=== PATIENT | female | born 1970 | race Caucasian/White ===

== ENCOUNTER 2017-06-12 10:40 | Inpatient (IN) | payer BC, OTHER ==
[~2017-06-12] VITALS: Ht 157.5 cm; Wt 76.2 kg
[2017-06-12] MEDS ORDERED: SOD CHLORIDE 0.9% 1,000 ML IV STA (10:58)
[2017-06-12] MEDS ORDERED: ASPIRIN 325 MG TAB PO STA (10:58)
[2017-06-12] MEDS ORDERED: ONDANSETRON 4 MG INJ IV STA (10:58)
[2017-06-12] MEDS ORDERED: METOCLOPRAMIDE 10 MG INJ IV ONE (11:30)
[2017-06-12] MEDS ORDERED: DIPHENHYDRAMINE 50 MG INJ IV ONE (11:30)
[2017-06-12] MEDS ORDERED: ACETAMINOPHEN 325 MG TAB PO ONE (11:30)
--- NOTE | 2017-06-12 11:31 | RADRPT ---
PROCEDURE: XR Chest. CLINICAL INDICATION: Chest pain TECHNIQUE: Single frontal view of the chest was obtained COMPARISON: None FINDINGS: No pleural effusion or pneumothorax. No consolidation. Unremarkable cardiomediastinal silhouette. No acute osseous abnormality. IMPRESSION: No acute cardiopulmonary disease. RPTAT: EE Celine Reid Physician Date Time Electronically viewed and signed by Celine Reid Physician on 06/12/2017 11:30 /
--- NOTE | 2017-06-12 11:32 | ERA ---
ER Documentation Chief Complaint Date/Time DATE: 06/12/17 TIME: 11:22 Chief Complaint SUDDEN ONSET EPIGASTRIC PAIN & DIAPHRETIC X 3OMINS HPI This is a 47-year-old female with a history of previous appendectomy, previous C -section, chronic low back pain with right-sided sciatica who is presenting with epigastric and chest pain. The patient's primary care physician called to discuss the case as well. Reportedly last Monday, the patient had an exacerbation of her sciatic back pain. She was given a shot of Toradol and given a prescription for ibuprofen as well as a Medrol Dosepak. The patient reports significant improvement of her back pain and completed her course of steroids as well as ibuprofen. This morning, she developed significant epigastric pain. She was given Tigan for nausea as well as a GI cocktail, but her symptoms persisted so she was encouraged to go to the emergency department. During transfer, the patient states that her epigastric pain is now radiating into the left chest. It does not radiate anywhere else. She remains nauseated. She has had episodes of nonbilious nonbloody vomiting this morning. She has no shortness of breath. She denies changes to bowel movements or urination. The patient does not have a personal or family history of heart disease, diabetes or stroke. ROS All systems reviewed and are negative except as per history of present illness. Medications Home Meds No Active Prescriptions or Reported Meds Allergies Allergies: Coded Allergies: No Known Allergy (Unverified , 06/12/17) PMhx/Soc History of Surgery: Yes (c section , appy ) Anesthesia Reaction: No Hx Neurological Disorder: No Hx Respiratory Disorders: No Hx Cardiac Disorders: No Hx Miscellaneous Medical Probl: No Hx Alcohol Use: Yes Hx Substance Use: No Hx Tobacco Use: No Smoking Status: Never smoker FmHx Family History: No diabetes Physical Exam Vitals Vital Signs Date Time Temp Pulse Resp B/P Pulse Ox O2 Delivery O2 Flow Rate FiO2 06/12/17 14:31 98.0 46 17 145/82 100 Nasal Cannula 2.0 06/12/17 12:30 43 18 156/89 99 Nasal Cannula 2.0 06/12/17 11:30 42 18 166/82 99 Nasal Cannula 2.0 06/12/17 11:10 Nasal Cannula 2 06/12/17 10:50 97.6 49 20 191/93 100 Physical Exam Const: Nauseated, Mild distress, Well nourished, Well developed Head: Atraumatic Eyes: Normal Conjunctiva ENT: Normal External Ears, Nose and Mouth. Neck: Full range of motion..~ No meningismus. Resp: Clear to auscultation bilaterally Cardio: Regular rhythm, bradycardia, no murmurs Abd: Soft, non distended, epigastric tenderness. Normal bowel sounds Skin: No petechiae or rashes Back: No midline or flank tenderness Ext: No cyanosis, or edema Neur: Awake and alert Psych: Normal Mood and Affect Result Diagram: 06/12/17 1105 06/12/17 1105 Results 24 hrs Laboratory Tests Test 06/12/17 11:05 White Blood Count 14.810^3/ul Red Blood Count 4.8710^6/ul Hemoglobin 11.9g/dl Hematocrit 38.8% Mean Corpuscular Volume 79.7fl Mean Corpuscular Hemoglobin 24.4pg Mean Corpuscular Hemoglobin Concent 30.7g/dl Red Cell Distribution Width 14.5% Platelet Count 92982^3/UL Mean Platelet Volume 10.9fl Neutrophils % 53.5% Lymphocytes % 40.3% Monocytes % 5.0% Eosinophils % 0.1% Basophils % 0.4% Nucleated Red Blood Cells % 0.0/100WBC Neutrophils # (Manual) 7.910^3/ul Lymphocytes # 6.010^3/ul Monocytes # 0.710^3/ul Eosinophils # 0.010^3/ul Basophils # 0.110^3/ul Nucleated Red Blood Cells # 0.010^3/ul Prothrombin Time 13.4Sec Prothrombin Time Ratio 1.0 INR International Normalized Ratio 1.02 Activated Partial Thromboplast Time 25.8Sec Sodium Level 142mmol/L Potassium Level 3.5mmol/L Chloride Level 107mmol/L Carbon Dioxide Level 22mmol/L Anion Gap 17 Blood Urea Nitrogen 24mg/dl Creatinine 0.64mg/dl Glucose Level 133mg/dl Calcium Level 9.9mg/dl Total Bilirubin 0.2mg/dl Direct Bilirubin 0.00mg/dl Indirect Bilirubin 0.2mg/dl Aspartate Amino Transf (AST/SGOT) 22IU/L Alanine Aminotransferase (ALT/SGPT) 35IU/L Alkaline Phosphatase 124IU/L Troponin I < 0.012ng/ml Total Protein 8.1g/dl Albumin 4.7g/dl Globulin 3.40g/dl Albumin/Globulin Ratio 1.38 Lipase 89U/L Current Medications Medications (Trade) Dose Ordered Sig/Vanessa Route PRN Reason Start Time Stop Time Status Last Admin Dose Admin Sodium Chloride (NS) 1,000 ml @ 1,000 mls/hr Q1H STAT IV 06/12/17 10:58 06/12/17 11:57 DC 06/12/17 11:05 Aspirin (Aspirin) 325 mg ONCE STAT PO 06/12/17 10:58 06/12/17 11:01 DC 06/12/17 11:06 Ondansetron HCl (Zofran Inj) 4 mg ONCE STAT IV 06/12/17 10:58 06/12/17 11:01 DC 06/12/17 11:06 Acetaminophen (Tylenol Tab) 650 mg ONCE ONCE PO 06/12/17 11:30 06/12/17 11:31 DC 06/12/17 11:28 Metoclopramide HCl (Reglan) 10 mg ONCE ONCE IV 06/12/17 11:30 06/12/17 11:31 DC 06/12/17 11:27 Diphenhydramine HCl (Benadryl) 25 mg ONCE ONCE IV 06/12/17 11:30 06/12/17 11:31 DC 06/12/17 11:27 Procedures/MDM The patient's presentation warrants a cardiopulmonary workup. The patient's blood work was obtained and reviewed. The patient's CBC shows a mild leukocytosis with a white count of 14.8. There is no left shift. The patient is afebrile at this time, and I have decreased suspicion for a systemic infection. The patient does have a mild anemia that does not need to be emergently treated. She does have a history of anemia. The patient's CMP is largely unremarkable. Her BUN is mildly elevated at 24, which could demonstrate a component of gastritis. The patient does not endorse hematemesis or bloody stools or dark or tarry stools. I do not suspect a GI bleed at this time. The patient's troponin is negative. Her labs do not demonstrate coagulopathy. The patient's chest x-ray demonstrated clear lungs. There is no consolidation or infiltration concerning for pneumonia. There is vasculature to the periphery and I do not suspect a pneumothorax. There is no vascular congestion or signs of pulmonary edema or pleural effusion. The cardiomediastinal silhouette is normal. There is no widened mediastinum. The patient does not have pain radiating to the back, and I do not suspect dissection. EKG read by me: Rate/Rhythm: Regular rhythm, sinus bradycardia at a rate of 44 Intervals: Normal [place]: Normal T-wave inversions in the anterior leads. No ST elevation or ST depression concerning for a STEMI or NSTEMI Impression: No evidence of ischemia or arrhythmia The patient was given IV fluids, a GI cocktail and Pepcid with significant improvement of her epigastric discomfort and nausea. She did endorse a headache and was given Reglan and Benadryl as well. Her headache improved but was not resolved. The patient also continued to be bradycardic. She remained mostly in the low 40s. There were occasional instances when she dropped transiently below 40. When you wake her up and speak to her, she does go into the high 50s. However, I am concerned about symptomatic bradycardia and as this is a new diagnosis, I feel that this requires inpatient workup for her bradycardia as well as the possibility of atypical chest pain as she is a middle -aged female. She will require a cardiology consult. She may also require further workup if her epigastric discomfort recurs. Aside from bradycardia, the patient remained stable. Her symptoms did not recur under my care. Her blood pressure was mildly elevated and stable. I do not feel that the patient is stable for transfer as she does endorse symptoms of symptomatic bradycardia, and she could decompensate during transfer if her heart rate were to drop further. The patient will be admitted to the Panel doctor, as per her Insurance authorization. She was accepted by Dr. Warren at 1505PM on 06/12/2017. Departure Diagnosis: Primary Impression: Epigastric pain Additional Impression: Bradycardia Condition: ANTONY Way MD Jun 12, 2017 11:32
[2017-06-12 11:41] LABS: INR 1.02; PROTIME 13.4 Sec (12.2-14.2)
[2017-06-12 11:46] LABS: ALANINE AMINOTRANSFERASE 35 IU/L (13-69); ALBUMIN 4.7 g/dl (3.3-4.9); ALBUMIN/GLOBULIN RATIO 1.38; ALKALINE PHOSPHATASE 124 IU/L (42-121); ANION GAP 17 (8-16); ASPARTATE AMINO TRANSFERASE 22 IU/L (15-46); BILIRUBIN,INDIRECT 0.2 mg/dl (0-1.1); BILIRUBIN,TOTAL 0.2 mg/dl (0.2-1.3); BLOOD UREA NITROGEN 24 mg/dl (7-20); CALCIUM 9.9 mg/dl (8.4-10.2); CARBON DIOXIDE 22 mmol/L (21-31); CHLORIDE 107 mmol/L (97-110); CREATININE 0.64 mg/dl (0.44-1.00); GLUCOSE 133 mg/dl (70-220); POTASSIUM 3.5 mmol/L (3.5-5.1); SODIUM 142 mmol/L (135-144); TOTAL PROTEIN 8.1 g/dl (6.1-8.1)
[2017-06-12 11:50] LABS: ABNORMAL IP MESSAGE 1; BASOPHIL # 0.1 10^3/ul (0.0-0.1); BASOPHILS % 0.4 % (0.0-2.0); EOSINOPHILS % 0.1 % (0.0-7.0); HEMATOCRIT 38.8 % (37.0-47.0); HEMOGLOBIN 11.9 g/dl (12.0-16.0); LYMPHOCYTES % 40.3 % (15.0-51.0); MEAN CORPUSCULAR HEMOGLOBIN 24.4 pg (29.0-33.0); MEAN CORPUSCULAR HGB CONC 30.7 g/dl (32.0-37.0); MEAN CORPUSCULAR VOLUME 79.7 fl (82.0-101.0); MEAN PLATELET VOLUME 10.9 fl (7.4-10.4); MONOCYTE # 0.7 10^3/ul (0.3-0.9); NEUTROPHILS % 53.5 % (39.0-77.0); PLATELET COUNT 305 10^3/UL (140-415); RED BLOOD COUNT 4.87 10^6/ul (4.20-5.40); RED CELL DISTRIBUTION WIDTH 14.5 % (11.5-14.5); WHITE BLOOD COUNT 14.8 10^3/ul (4.8-10.8)
[2017-06-12 12:04] LABS: TROPONIN-I < 0.012 ng/ml (0.00-0.12)
[2017-06-12 12:12] LABS: POSITIVE DIFF @See below
[2017-06-12 13:03] LABS: PARTIAL THROMBOPLASTIN TIME 25.8 Sec (25.0-35.0)
[2017-06-12] MEDS ORDERED: morphine 4 MG/ML VIAL IV STA (15:10)
[2017-06-12] MEDS ORDERED: ONDANSETRON 4 MG INJ IV PRN (15:30)
[2017-06-12] MEDS ORDERED: ACETAMINOPHEN 325 MG TAB PO PRN (15:30)
[2017-06-12 16:00] VITALS: TEMP 98.1
[2017-06-12] MEDS ORDERED: NITROGLYCERIN (SL) 0.4 MG TAB SL PRN (16:00)
[2017-06-12] MEDS ORDERED: hydrALAzine 20 MG INJ IV PRN (16:00)
[2017-06-12] MEDS ORDERED: ALBUTEROL/IPRATROPIUM (NEB) 3 ML AMP HHN PRN (16:00)
[2017-06-12] MEDS ORDERED: MAGNESIUM HYDROXIDE 30ML CUP PO PRN (16:00)
[2017-06-12] MEDS ORDERED: NA PHOSPHATE/BIPHOS 133 ML ENEMA PR PRN (16:00)
[2017-06-12] MEDS ORDERED: morphine 2 MG INJ IV PRN (16:00)
[2017-06-12] MEDS ORDERED: LORAZEPAM 2 MG INJ IV PRN (16:00)
[2017-06-12] MEDS ORDERED: NACL 0.9% 3 ML SYG IV SCH (16:00)
[2017-06-12] MEDS ORDERED: HYDROCODONE/APAP (5/325) TAB PO PRN (16:00)
[2017-06-12] MEDS ORDERED: DOCUSATE SODIUM 100 MG CAP PO PRN (16:00)
[2017-06-12] MEDS: LEVOFLOXACIN 750MG/D5W (PMX) 150 ML IVPB SCH (17:30)
[2017-06-12 17:40] LABS: INR 1.07; PROTIME 13.9 Sec (12.2-14.2); PT RATIO 1.1
[2017-06-12 17:41] LABS: PARTIAL THROMBOPLASTIN TIME 27.9 Sec (25.0-35.0)
[2017-06-12 17:59] LABS: CREATINE KINASE 51 IU/L (23-200)
[2017-06-12 18:12] LABS: CK-MB 0.99 ng/ml (0.0-2.4)
[2017-06-12 18:13] LABS: TROPONIN-I < 0.012 ng/ml (0.00-0.12)
--- NOTE | 2017-06-12 18:19 | RADRPT ---
Echocardiogram Report Patient Name: LASHANDA CONTRERAS Gender: Female Date: 1970 Study Date: 12-Jun-2017 Movement Education Specialist: Shan Jc [facility] Location: [facility] Ref. Physician: LEE CROWE Quality: Adequate Procedures: Transthoracic echocardiogram with complete 2D, M-Mode, and doppler examination. Indications: Bradycardia. 2D/M Mode Doppler Measurement Value Normal Ranges Measurement Value Normal Ranges LVIDd 2D 4.0 3.5 - 5.6 cm AV Peak Andriy 1.6 m/sec LVIDs 2D 2.6 2.1 - 4.1 cm AV Peak PG 11.0 mmHg FS 2D 36.0 % LVOT Peak Andriy 1.2 m/sec LVPWd 2D 0.8 0.6 - 1.1 cm LVOT Peak PG 6.0 mmHg IVSd 2D 0.8 0.6 - 1.1 cm MV E Peak Andriy 1.3 m/sec IVS/LVPW 2D 1.0 MV A Peak Andriy 0.9 m/sec AoR Diam 2D 2.6 2.0 - 3.7 cm MV E/A 1.4 LA/Ao 2D 1 0 - 1 MV Decel Time 176 msec EDV 2D 64.0 cm3 MV E/A 1.4 ESV 2D 16.8 cm3 MR Peak PG 100.0 mmHg LA Dimen 2D 3.7 2.3 - 4.0 cm MR Peak Andriy 5.0 m/sec TR Peak Andriy 2.7 m/sec TR Peak PG 29.0 mmHg RVSP 39.0 mmHg Findings Left Ventricle: Normal left ventricular systolic function. Normal left ventricular cavity size. Normal left ventricular wall thickness. Ejection fraction is visually estimated at 65 %. Tissue Doppler/Mitral Doppler indices are consistent with impaired relaxation (Stage I diastolic dysfunction). Right Ventricle: Normal right ventricular size. Normal right ventricular systolic function. Left Atrium: The left atrium is normal in size. Right Atrium: The right atrium is normal in size. Mitral Valve: Mild mitral leaflet calcification. Mild mitral annular calcification. Mild mitral valve regurgitation. Aortic Valve: Normal appearance of the aortic valve. No significant aortic stenosis or insufficiency. Tricuspid Valve: Normal appearance of the tricuspid valve. Estimated peak PA systolic pressure 39 mmHg. There is mild tricuspid regurgitation. Pulmonic Valve: Pulmonic valve not well visualized. There is trace pulmonic regurgitation. Pericardium: Normal pericardium with no significant pericardial effusion. Aorta: Normal aortic root. IVC: Dilated inferior vena cava with poor inspiratory collapse consistent with elevated right atrial pressures. Conclusions 1.Normal left ventricular systolic function. Normal left ventricular cavity size. Normal left ventricular wall thickness. Ejection fraction is visually estimated at 65 %. Tissue Doppler/Mitral Doppler indices are consistent with impaired relaxation (Stage I diastolic dysfunction). 2.Normal appearance of the tricuspid valve. Estimated peak PA systolic pressure 39 mmHg. There is mild tricuspid regurgitation. 3.Normal appearance of the aortic valve. No significant aortic stenosis or insufficiency. 4.Mild mitral leaflet calcification. Mild mitral annular calcification. Mild mitral valve regurgitation. 5.Dilated inferior vena cava with poor inspiratory collapse consistent with elevated right atrial pressures. Electronically Signed By: Will Atkins 12-Jun-2017 18:19:08 -0700 Patient Name: LASHANDA CONTRERAS Study Date: 12-Jun-2017 [id number]
--- NOTE | 2017-06-12 18:23 | HP ---
DATE OF ADMISSION: 06/12/2017 CHIEF COMPLAINT: Epigastric pain, nausea, vomiting, and bradycardia. HISTORY OF PRESENT ILLNESS: The patient is a 47-year-old with past medical history of prior appendectomy, prior C section, chronic low back pain and sciatica, who has been having epigastric pain that began earlier this morning. 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 She did well over the weekend until early this morning when she had nonbilious, nonbloody vomiting and nausea, as well as epigastric pain. She decided to come into the ER. She was given Tigan for nausea, as well as a GI cocktail, but her symptoms persisted, so again she came into the ER and when she came in she was found to be in sinus bradycardia, with a heart rate in the 38-44 range. Her white count was also elevated at 14.8. No diarrhea or constipation. No abdominal pain. But she is having positive chest pain and positive shortness of breath symptoms as well. She also found with mild hypertensive urgency as well. Systolic blood pressure is 161 to 170s as well. No prior history of any strokes or heart attacks. No prior history of any arrhythmias. She also stated that she got similar symptoms of epigastric pain, nausea, and vomiting one month ago, but those resolved and she did not seek any medical attention at that time. PAST MEDICAL HISTORY: Stated above. ALLERGIES: NO KNOWN DRUG ALLERGIES. MEDICATIONS: None listed to meds. FAMILY HISTORY: Mother had hypertension and had a thoracic and abdominal aneurysms in and she is . Father had diabetes and pancreatic cancer. He is . SOCIAL HISTORY: Occasional alcohol use, no smoking or IV drug abuse. PAST SURGICAL HISTORY: , appendectomy in the past. PHYSICAL EXAMINATION: VITAL SIGNS: T-max 98.9, pulse is 39 to 46, respirations 18, blood pressure is 145 to 191 systolic over 80 to 90 diastolic. Saturating 99 percent. GENERAL APPEARANCE: The patient is lying in bed, in mild-to- moderate distress. Complaining of chest pain. But otherwise answers questions. HEENT: Pupils are equal, round, react to light. Extraocular muscles intact. NECK: Supple. No thyromegaly. LUNGS: Clear to auscultation bilaterally. CARDIOVASCULAR: S1 and S2 heard, but is bradycardic. No rubs or gallops. ABDOMEN: Soft. Mild tenderness to palpation epigastric area. Otherwise, no rebound or guarding. MUSCULOSKELETAL: No lower extremity edema bilaterally. NEUROLOGIC: No focal deficits. LABORATORY: WBC 14.8, hemoglobin 11.9, hematocrit 38.8, platelets 305,000. The comprehensive metabolic panel is normal. Lipase is normal. Coags are normal. IMAGING: She had a chest x-ray that shows no acute cardiopulmonary disease. ASSESSMENT/PLAN: 1. The patient is a 47-year-old female with epigastric pain and chest pain, and signs of sinus bradycardia. 2. Epigastric pain with chest pain. Again, we will admit patient to telemetry floor. We will rule out for acute coronary syndrome and get cardiology consult. Trend her troponin's. Keep on telemetry floor. Check TSH A1c lipid panel. It is unclear why patient is having sinus bradycardia. She get a Toradol shot 3 or 4 days ago prior to admission. It is known to cause hypertension, but unclear what patient's bradycardia. No history of any arrhythmia in the past. Continue her on telemetry monitoring. 3. Chronic low back pain. We will cautiously give her pain control medications. Including low-dose opiates. 4. Deep venous thrombosis prophylaxis. Heparin subcu. 5. Gastrointestinal prophylaxis. H2 dillon. Consider PT consult as well. 6. Hypertensive urgency. Again, hydralazine as needed. Dictated By: Jeronimo Mata MD /kenneth/johnathon /Document#: [id number]
--- NOTE | 2017-06-12 19:08 | CONS ---
Date/Time of Note Date/Time of Note DATE: 06/12/17 TIME: 19:06 Assessment/Plan Assessment/Plan Chief Complaint/Hosp Course 1. chest pain: R/O ACS 2. Marked sinus bradycardia: probably related to GI pain 3. HTN: probably at least partially related to pain 4. eigastric pain: r/o PUD. S/P ASA in ER Hydralazine po for HTN R/O [place] will give protonix IV now GI work up as per IM will order CT deloris angio to r/o CAD. Thank you for his referral. I will continue to follow along with you. TIFFANIE ADDISON MD [facility] Problems: Consultation Date/Type/Reason Admit Date/Time Date of Consultation: Jun 12, 2017 Type of Consultation: CARDIOLOGY Reason for Consultation CHEST PAIN AND BRADYCARDIA Hx of Present Illness CC: epigastric pain going to chest HPI: Dear Dr. Munoz thank you for this referral. This is a 47-year-old female with history of sciatica who has been having increasing sciatica pain over the past few days. Patient has been started on prednisone as well as ibuprofen. Patient came to the emergency room today with complaint of severe epigastric pain. The pain has been going to his left chest as well. She was also noted to be in marked sinus bradycardia. Rhythm history was reviewed and the EKG was reviewed. Patient with no evidence of heart block. He has been hypotensive as well and has been bradycardic for which I was kindly asked to evaluate and treat. Discussed with the physicians and staff. Discussed with the patient . Allergies: No known drug allergies Past medical history as above only Social history patient does not smoke Family history no reported early coronary artery disease Medications: Ibuprofen and prednisone as above mentioned. Review of systems positive for back pain. She denies all except for above- mentioned. She denies any active bleeding. Social History Smoking Status: Never smoker Exam/Review of Systems Vital Signs Vitals Vital Signs Date Time Temp Pulse Resp B/P Pulse Ox O2 Delivery O2 Flow Rate FiO2 06/12/17 19:01 39 20 167/81 100 Room Air Nasal Cannula 06/12/17 16:00 98.1 2.0 Exam General: no acute distress HEENT: NC/AT. pupils are equal. round. NECK: NO JVD. no stridor. CV: BRADYCARDIC. systolic murmur; no gallop or rubs. PULM: no wheezing or rhonchi. GI: SOFT, + mild tenderness epigastric area, ND, no rebound or guarding Extremity: trace B/L LE edema. no clubbing. neuro: awake and alert, OX3. Psych: calm and pleasant rectal: deferred : normal ECG: personally reviewed marked sinus brdy. nonspecific T wave abn ECHO personally reviewed; 1. Normal left ventricular systolic function. Normal left ventricular cavity size. Normal left ventricular wall thickness. Ejection fraction is visually estimated at 65 %. Tissue Doppler/Mitral Doppler indices are consistent with impaired relaxation (Stage I diastolic dysfunction). 2. Normal appearance of the tricuspid valve. Estimated peak PA systolic pressure 39 mmHg. There is mild tricuspid regurgitation. 3. Normal appearance of the aortic valve. No significant aortic stenosis or insufficiency. 4. Mild mitral leaflet calcification. Mild mitral annular calcification. Mild mitral valve regurgitation. 5. Dilated inferior vena cava with poor inspiratory collapse consistent with elevated right atrial pressures. Results Result Diagram: 06/12/17 1105 06/12/17 1105 Results 24 hrs Laboratory Tests Test 06/12/17 11:05 06/12/17 16:50 White Blood Count 14.8 H Red Blood Count 4.87 Hemoglobin 11.9 L Hematocrit 38.8 Mean Corpuscular Volume 79.7 L Mean Corpuscular Hemoglobin 24.4 L Mean Corpuscular Hemoglobin Concent 30.7 L Red Cell Distribution Width 14.5 Platelet Count 305 Mean Platelet Volume 10.9 H Neutrophils % 53.5 Lymphocytes % 40.3 Monocytes % 5.0 Eosinophils % 0.1 Basophils % 0.4 Nucleated Red Blood Cells % 0.0 Neutrophils # (Manual) 7.9 H Lymphocytes # 6.0 H Monocytes # 0.7 Eosinophils # 0.0 Basophils # 0.1 Nucleated Red Blood Cells # 0.0 Prothrombin Time 13.4 13.9 Prothrombin Time Ratio 1.0 1.1 INR International Normalized Ratio 1.02 1.07 Activated Partial Thromboplast Time 25.8 27.9 Sodium Level 142 Potassium Level 3.5 Chloride Level 107 Carbon Dioxide Level 22 Anion Gap 17 H Blood Urea Nitrogen 24 H Creatinine 0.64 Glucose Level 133 Calcium Level 9.9 Total Bilirubin 0.2 Direct Bilirubin 0.00 Indirect Bilirubin 0.2 Aspartate Amino Transf (AST/SGOT) 22 Alanine Aminotransferase (ALT/SGPT) 35 Alkaline Phosphatase 124 H Troponin I < 0.012 < 0.012 Total Protein 8.1 Albumin 4.7 Globulin 3.40 H Albumin/Globulin Ratio 1.38 Lipase 89 Creatine Kinase 51 Creatine Kinase Index 1.9 Creatinine Kinase MB (Mass) 0.99 Medications Medications Current Medications Ondansetron HCl (Zofran Inj) 4 mg Q6H PRN IV NAUSEA AND/OR VOMITING; Start 08/18 at 16:00 Acetaminophen (Tylenol Tab) 650 mg Q6H PRN PO PAIN LEVEL 1-3 OR FEVER; Start at 16:00 Acetaminophen/ Hydrocodone Bitart ([place] (5/325)) 1 tab Q6H PRN PO MODERATE PAIN LEVEL 4-6 Last administered on 06/12/17 17:30; Admin Dose 1 TAB; Start 08/18 at 16:00 Morphine Sulfate (morphine) 1 mg Q6H PRN IV SEVERE PAIN LEVEL 7-10; Start 06/12 at 16:00 Docusate Sodium (Colace) 100 mg Q12H PRN PO CONSTIPATION; Start 06/12/17 at 16: 00 Magnesium Hydroxide (Milk Of Mag) 30 ml DAILY PRN PO CONSTIPATION; Start at 16:00 Sodium Biphosphate/ Sodium Phosphate (Fleet Enema) 133 ml DAILY PRN RI CONSTIPATION; Start 06/12/17 at 16:00 Famotidine (Pepcid Iv) 20 mg Q12 IV ; Start 06/12/17 at 21:00 Heparin Sodium (Porcine) 5000 unit 5,000 unit Q12 SC ; Start 06/12/17 at 21:00 Sodium Chloride (1/2 NS) 1,000 ml @ 75 mls/hr [id number] IV ; Start 06/12/17 at 15 :38 Lorazepam 0.5 mg 0.5 mg Q6H PRN IV ANXIETY; Start 06/12/17 at 16:00 Levofloxacin/ Dextrose (Levaquin 750 Mg/ D5W 150 ml (Pmx)) 150 ml @ 100 mls/hr Q24H IVPB Last administered on 06/12/17 17:30; Admin Dose 100 MLS/HR; Start at 16:30 Hydralazine HCl (Apresoline) 10 mg Q6H PRN IV ELEVATED BLOOD PRESSURE; Start at 16:00 Clonidine (Catapres) 0.1 mg Q6H PRN PO ELEVATED BLOOD PRESSURE; Start 06/12/17 at 16:00 Nitroglycerin (Nitroglycerin (Sl Tab) 0.4 Mg) 1 tab Q5M PRN SL ANGINA; Start at 16:00 TIFFANIE ADDISON MD Jun 12, 2017 19:07
[2017-06-12] MEDS ORDERED: PANTOPRAZOLE 40 MG INJ IV ONE (19:30)
[2017-06-12 19:57] VITALS: PULSE 30
[2017-06-12 20:00] VITALS: PULSE 40
[2017-06-12] MEDS: SOD CHLORIDE 0.45% 1,000 ML IV SCH (20:21)
[2017-06-12] MEDS: HEPARIN 5,000 UNIT/0.5 ML VIAL SC SCH (20:33)
[2017-06-12] MEDS: ACETAMINOPHEN 325 MG TAB PO PRN (20:35)
[2017-06-12 20:56] VITALS: BP 173/82; RESP 19
[2017-06-12] MEDS: FAMOTIDINE 20 MG INJ IV SCH (21:50)
[2017-06-12] MEDS: KETOROLAC 30 MG INJ IV PRN (22:16)
[2017-06-12 22:27] VITALS: Ht 157.5 cm; Wt 76.2 kg
[2017-06-12 23:42] LABS: CREATINE KINASE 43 IU/L (23-200)
[2017-06-12 23:52] LABS: CK-MB 0.83 ng/ml (0.0-2.4)
[2017-06-12 23:58] LABS: TROPONIN-I < 0.012 ng/ml (0.00-0.12)
[2017-06-13] VITALS (13 sets, daily range): BP systolic 111–150; BP diastolic 54–66; PULSE 40–51; RESP 18–20
[2017-06-13 04:04] LABS: ADD UMIC NO; UR ASCORBIC ACID NEGATIVE (NEGATIVE); UR BILIRUBIN (Dip) NEGATIVE (NEGATIVE); UR BLOOD (Dip) NEGATIVE (NEGATIVE); UR CLARITY CLEAR (CLEAR); UR COLOR YELLOW (YELLOW); UR GLUCOSE (Dip) NEGATIVE (NEGATIVE); UR KETONES (Dip) 1+ mg/dL (NEGATIVE); UR LEUKOCYTE ESTERASE (Dip) NEGATIVE Leu/ul (NEGATIVE); UR NITRITE (Dip) NEGATIVE (NEGATIVE); UR SPECIFIC GRAVITY (Dip) 1.017 (1.003-1.030); UR TOTAL PROTEIN (Dip) NEGATIVE (NEGATIVE); UR UROBILINOGEN (Dip) NEGATIVE (NEGATIVE)
[2017-06-13] MEDS: SOD CHLORIDE 0.45% 1,000 ML IV SCH ×3 (04:58→18:01)
[2017-06-13 07:45] LABS: BASOPHILS % 0.3 % (0.0-2.0); EOSINOPHILS % 0.1 % (0.0-7.0); HEMATOCRIT 33.3 % (37.0-47.0); HEMOGLOBIN 10.1 g/dl (12.0-16.0); LYMPHOCYTES # 3.1 10^3/ul (0.8-2.9); LYMPHOCYTES % 32.7 % (15.0-51.0); MEAN CORPUSCULAR HEMOGLOBIN 24.8 pg (29.0-33.0); MEAN CORPUSCULAR HGB CONC 30.3 g/dl (32.0-37.0); MEAN CORPUSCULAR VOLUME 81.8 fl (82.0-101.0); MONOCYTE # 0.8 10^3/ul (0.3-0.9); MONOCYTES % 7.9 % (0.0-11.0); NEUTROPHILS % 58.7 % (39.0-77.0); PLATELET COUNT 191 10^3/UL (140-415); RED BLOOD COUNT 4.07 10^6/ul (4.20-5.40); RED CELL DISTRIBUTION WIDTH 14.6 % (11.5-14.5); WHITE BLOOD COUNT 9.6 10^3/ul (4.8-10.8)
[2017-06-13 08:05] LABS: ALBUMIN 3.3 g/dl (3.3-4.9); ALBUMIN/GLOBULIN RATIO 1.22; BILIRUBIN,INDIRECT 0.5 mg/dl (0-1.1); BILIRUBIN,TOTAL 0.5 mg/dl (0.2-1.3); CREATININE 0.67 mg/dl (0.44-1.00); POTASSIUM 4.1 mmol/L (3.5-5.1)
[2017-06-13] MEDS: FAMOTIDINE 20 MG INJ IV SCH ×2 (08:08→20:13)
[2017-06-13] MEDS: HEPARIN 5,000 UNIT/0.5 ML VIAL SC SCH ×2 (08:12→20:20)
[2017-06-13 08:15] LABS: CHOL/HDL RATIO 3.4 RATIO
[2017-06-13 08:20] LABS: CALCIUM 8.9 mg/dl (8.4-10.2); CREATININE 0.66 mg/dl (0.44-1.00); MAGNESIUM 1.9 mg/dl (1.7-2.5); PHOSPHORUS 4.5 mg/dl (2.5-4.9); POTASSIUM 4.2 mmol/L (3.5-5.1)
[2017-06-13 08:44] LABS: THYROID STIMULATING HORMONE 1.71 MIU/L (0.465-4.680)
[2017-06-13] MEDS: ACETAMINOPHEN 325 MG TAB PO PRN ×2 (09:46→20:13)
--- NOTE | 2017-06-13 12:36 | PN ---
Date/Time of Note Date/Time of Note DATE: 06/13/17 TIME: 12:33 Assessment/Plan VTE Prophylaxis VTE Prophylaxis Intervention: heparin Lines/Catheters IV Catheter Type (from Nrsg): Saline Lock Assessment/Plan Assessment/Plan 1. chest pain, likely GI related, awaiting for coronary CTA, 2. Marked sinus bradycardia, normal TSH, follow up with cardiology 3. HTN: probably at least partially related to pain 4. Epigastric pain, gastritis versus PUD, on protonix, improving 5. DVT prophylaxis: heparin Subjective 24 Hr Interval Summary Free Text/Dictation no chest pain today Exam/Review of Systems Vital Signs Vitals Vital Signs Date Time Temp Pulse Resp B/P Pulse Ox O2 Delivery O2 Flow Rate FiO2 06/13/17 12:12 98.8 45 18 122/58 98 06/13/17 07:22 Nasal Cannula 2.0 Intake and Output 06/12/17 06/12/17 06/13/17 15:00 23:00 07:00 Intake Total 700 ml Balance 700 ml Exam Constitutional: alert, obese, oriented, well developed Psych: nl mood/affect, no complaints Head: atraumatic, normocephalic Eyes: EOMI, PERRL, nl conjunctiva, nl lids, nl sclera ENMT: nl external ears & nose, nl lips & teeth, nl nasal mucosa & septum Neck: non-tender, supple Respiratory: clear to auscultation, normal air movement, No congested cough, No crackles/rales, No diminished breath sounds, No intercostal retraction, No labored breathing, No other, No respirations, No tactile fremitus, No wheezing Cardiovascular: nl pulses, regular rate and rhythm, No S3, No S4, No bruits, No diastolic murmur, No edema, No gallop, No irregular rhythm, No jugular venous distention (JVD), No murmurs/extra sounds, No other, No rub, No systolic murmur Gastrointestinal: nl liver, spleen, soft, tender (epigastric tenderness), No ascites, No bowel sounds, No distended, No firm, No hepatomegaly, No mass , No other, No rebound or guarding, No splenomegaly, No surgical scars Musculoskeletal: nl extremities to inspection Extremities: normal pulses, No calf tenderness, No clubbing, No cyanosis, No edema, No other, No palpable cord, No pitting pedal edema, No tenderness 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, nl mental status, nl speech, nl strength Skin: nl turgor Lymph: nl lymph nodes Results Result Diagram: 06/13/17 0644 06/13/17 0644 Results 24 hrs Laboratory Tests Test 06/12/17 16:50 06/12/17 23:16 06/13/17 01:35 06/13/17 06:44 Prothrombin Time 13.9 Prothrombin Time Ratio 1.1 INR International Normalized Ratio 1.07 Activated Partial Thromboplast Time 27.9 Creatine Kinase 51 43 Creatine Kinase Index 1.9 1.9 Creatinine Kinase MB (Mass) 0.99 0.83 Troponin I < 0.012 < 0.012 Free Thyroxine 0.74 Urine Color YELLOW Urine Clarity CLEAR Urine pH 6.0 Urine Specific [place] 1.017 Urine Ketones 1+ H Urine Nitrite NEGATIVE Urine Bilirubin NEGATIVE Urine Urobilinogen NEGATIVE Urine Leukocyte Esterase NEGATIVE Urine Hemoglobin NEGATIVE Urine Glucose NEGATIVE Urine Total Protein NEGATIVE White Blood Count 9.6 # Red Blood Count 4.07 L Hemoglobin 10.1 L Hematocrit 33.3 L Mean Corpuscular Volume 81.8 L Mean Corpuscular Hemoglobin 24.8 L Mean Corpuscular Hemoglobin Concent 30.3 L Red Cell Distribution Width 14.6 H Platelet Count 191 # Mean Platelet Volume 11.0 H Neutrophils % 58.7 Lymphocytes % 32.7 Monocytes % 7.9 Eosinophils % 0.1 Basophils % 0.3 Nucleated Red Blood Cells % 0.0 Neutrophils # (Manual) 5.6 Lymphocytes # 3.1 H Monocytes # 0.8 Eosinophils # 0.0 Basophils # 0.0 Nucleated Red Blood Cells # 0.0 Sodium Level 139 Potassium Level 4.1 Chloride Level 106 Carbon Dioxide Level 28 Anion Gap 9 Blood Urea Nitrogen 17 Creatinine 0.67 Glucose Level 85 Hemoglobin A1c 5.9 Calcium Level 9.0 Phosphorus Level 4.5 Magnesium Level 1.9 Total Bilirubin 0.5 Direct Bilirubin 0.00 Indirect Bilirubin 0.5 Aspartate Amino Transf (AST/SGOT) 28 Alanine Aminotransferase (ALT/SGPT) 54 Alkaline Phosphatase 96 Total Protein 6.0 #L Albumin 3.3 # Globulin 2.70 Albumin/Globulin Ratio 1.22 Triglycerides Level 170 H Cholesterol Level 170 LDL Cholesterol, Calculated 87 HDL Cholesterol 49 Cholesterol/HDL Ratio 3.4 Thyroid Stimulating Hormone (TSH) 1.710 Medications Medications Current Medications Ondansetron HCl (Zofran Inj) 4 mg Q6H PRN IV NAUSEA AND/OR VOMITING; Start 08/18 at 16:00 Acetaminophen (Tylenol Tab) 650 mg Q6H PRN PO PAIN LEVEL 1-3 OR FEVER Last administered on 06/13/17 09:46; Admin Dose 650 MG; Start 06/12/17 at 16:00 Acetaminophen/ Hydrocodone Bitart ([place] (5/325)) 1 tab Q6H PRN PO MODERATE PAIN LEVEL 4-6 Last administered on 06/12/17 17:30; Admin Dose 1 TAB; Start 08/18 at 16:00 Morphine Sulfate (morphine) 1 mg Q6H PRN IV SEVERE PAIN LEVEL 7-10; Start 06/12 at 16:00 Docusate Sodium (Colace) 100 mg Q12H PRN PO CONSTIPATION; Start 06/12/17 at 16: 00 Magnesium Hydroxide (Milk Of Mag) 30 ml DAILY PRN PO CONSTIPATION; Start at 16:00 Sodium Biphosphate/ Sodium Phosphate (Fleet Enema) 133 ml DAILY PRN [place] CONSTIPATION; Start 06/12/17 at 16:00 Famotidine (Pepcid Iv) 20 mg Q12 IV Last administered on 06/13/17 08:08; Admin Dose 20 MG; Start 06/12/17 at 21:00 Heparin Sodium (Porcine) 5000 unit 5,000 unit Q12 SC Last administered on 08:12; Admin Dose 5,000 UNIT; Start 06/12/17 at 21:00 Sodium Chloride (1/2 NS) 1,000 ml @ 75 mls/hr [id number] IV Last administered on 06/13/17 08:17; Admin Dose 75 MLS/HR; Start 06/12/17 at 15:38 Lorazepam 0.5 mg 0.5 mg Q6H PRN IV ANXIETY; Start 06/12/17 at 16:00 Levofloxacin/ Dextrose (Levaquin 750 Mg/ D5W 150 ml (Pmx)) 150 ml @ 100 mls/hr Q24H IVPB Last administered on 06/12/17 17:30; Admin Dose 100 MLS/HR; Start at 16:30 Hydralazine HCl (Apresoline) 10 mg Q6H PRN IV ELEVATED BLOOD PRESSURE; Start at 16:00 Clonidine (Catapres) 0.1 mg Q6H PRN PO ELEVATED BLOOD PRESSURE Last administered on 06/12/17 20:35; Admin Dose 0.1 MG; Start 06/12/17 at 16:00 Nitroglycerin (Nitroglycerin (Sl Tab) 0.4 Mg) 1 tab Q5M PRN SL ANGINA; Start at 16:00 Ketorolac Tromethamine (Toradol) 30 mg Q6H PRN IV PAIN Last administered on 22:16; Admin Dose 30 MG; Start 06/12/17 at 22:00; Stop 06/15/17 at 21:59 KATE SEARS MD Jun 13, 2017 12:36
[2017-06-13] MEDS: KETOROLAC 30 MG INJ IV PRN (13:37)
[2017-06-13] MEDS: LEVOFLOXACIN 750MG/D5W (PMX) 150 ML IVPB SCH (15:52)
[2017-06-13] MEDS ORDERED: IOHEXOL 350MG/ML 50 ML BTL ONE (17:00)
[2017-06-13] MEDS ORDERED: IOHEXOL 100 ML ONE (17:00)
[2017-06-13] MEDS ORDERED: SOD CHLORIDE 0.9% 100 ML ONE (17:00)
[2017-06-13] MEDS ORDERED: NITROGLYCERIN AEROSOL (4.9 GM) ONE (17:36)
--- NOTE | 2017-06-13 18:12 | RADRPT ---
PROCEDURE: CTA of the heart and coronary arteries. CLINICAL INDICATION: Chest pain COMPARISON: No previous relevant images are available for comparison. TECHNIQUE: Multiphasic ECG-gated volumetric acquisition from the ascending aorta to the diaphragm pe rformed with intravenous contrast on a high-resolution multi detector scanner with multiphasic recon structions. Multiplanar reconstructions, three-dimensional reconstructions, as well as maximal inten sity projection images are produced and reviewed. One or more of the following dose reduction techni ques were used: Automated exposure control; Adjustment of the mA and/or kV according to patient size ; Use of iterative reconstruction technique; ECG dose modulation. CTDI = 8, 2, 2, 2, 2, 57, 92 mGy. DLP = 1667 mGy-cm. Stenosis classification of vessels greater than 1.5 mm in diameter: None 0%, Minimal 1-24%, Mild 25- 49%, Moderate 50-69%, Severe 70-99%, Occluded 100% CONTRAST: 100 mL of Omnipaque 350 intravenously without adverse event. FINDINGS: Overall exam quality and angiographic enhancement: Excellent. Origins and course of the coronary arteries: Normal. Coronary artery system dominance pattern: Right. Total calcium score: 0 Not fully diagnostic segments due to artifacts: None. RCA: Patent with no evidence of plaque. PLB: Patent with no evidence of plaque. PDA: Patent with no evidence of plaque. LM: Patent with no evidence of plaque. RI: Minimal sized vessel. Patent with no evidence of plaque. LAD: Patent with no evidence of plaque. Diags: Patent with no evidence of plaque. LCX: Patent with no evidence of plaque. OMs: Patent with no evidence of plaque. Pericardium: Normal. Pericardial effusion: None. Heart size: Normal. Aortic valve: Trileaflet morphology. Normal systolic excursion. Normal diastolic coaptation. No evid ence of thickening or calcification. Mitral valve: Normal morphology. No evidence of prolapse on systolic images. No evidence of thickeni ng or calcification. Myocardial attenuation: Normal. No abnormal areas of thickening or thinning. Intracardiac enhancement: No left-sided filling defects to suggest the presence of mass or thrombus . Left atrial appendage is well opacified. Extracardiac findings: Visualized thoracic aorta: Normal caliber. No significant atherosclerotic changes. Pulmonary arteries: Normal caliber. No evidence of central filling defect. Pulmonary veins: Conventional pulmonary venous return. Lungs: No acute appearing air space infiltrates. Minimal linear atelectasis is present within the jolene ng bases. No suspicious pulmonary nodules. Visualized mediastinum: No mass or fluid collection. No lymphadenopathy. Visualized osseous structures: Normal. Visualized upper abdomen: Normal. IMPRESSION: Total calcium score: 0 Not fully diagnostic segments due to artifacts: None. RCA: Patent with no evidence of plaque. LM: Patent with no evidence of plaque. LAD: Patent with no evidence of plaque. LCX: Patent with no evidence of plaque. RPTAT: AADD Reference images are provided below. Reconstructed vessel is listed on the fifth line in the top ri ght hand corner. .Jassi Bunch MD, Date Time Electronically viewed and signed by .Jassi Bunch MD, on 06/13/2017 18:11 .B/
--- NOTE | 2017-06-13 18:51 | CONS ---
Date/Time of Note Date/Time of Note DATE: 06/13/17 TIME: 18:47 Consult Date/Type/Reason Admit Date/Time Jun 12, 2017 at 15:18 Initial Consult Date 06/12/17 Type of Consultation: CARDIOLOGY Subjective d/w staff and rhythm was reviewed. pt remains in Sinus iris mostly but no syncope or presyncope or dizziness her chest pain has resolved. mild epigastric pain OBJECTIVE; General: no acute distress HEENT: NC/AT. pupils are equal. round. NECK: NO JVD. no stridor. CV: BRADYCARDIC. systolic murmur; no gallop or rubs. PULM: no wheezing or rhonchi. GI: SOFT, + mild tenderness epigastric area, ND, no rebound or guarding Extremity: trace B/L LE edema. no clubbing. neuro: awake and alert, OX3. Psych: calm and pleasant rectal: deferred : normal ECG: personally reviewed marked sinus brdy. nonspecific T wave abn ECHO personally reviewed; 1. Normal left ventricular systolic function. Normal left ventricular cavity size. Normal left ventricular wall thickness. Ejection fraction is visually estimated at 65 %. Tissue Doppler/Mitral Doppler indices are consistent with impaired relaxation (Stage I diastolic dysfunction). 2. Normal appearance of the tricuspid valve. Estimated peak PA systolic pressure 39 mmHg. There is mild tricuspid regurgitation. 3. Normal appearance of the aortic valve. No significant aortic stenosis or insufficiency. 4. Mild mitral leaflet calcification. Mild mitral annular calcification. Mild mitral valve regurgitation. 5. Dilated inferior vena cava with poor inspiratory collapse consistent with elevated right atrial pressures. CT deloris angio: normal Objective Vital Signs Date Time Temp Pulse Resp B/P Pulse Ox O2 Delivery O2 Flow Rate FiO2 06/13/17 18:33 98.2 51 18 111/54 97 06/13/17 07:22 Nasal Cannula 2.0 Intake and Output 06/12/17 06/12/17 06/13/17 15:00 23:00 07:00 Intake Total 700 ml Balance 700 ml Results/Medications Result Diagram: 06/13/17 0644 06/13/17 0644 Results 24 hrs Laboratory Tests Test 06/12/17 23:16 06/13/17 01:35 06/13/17 06:44 Creatine Kinase 43 Creatine Kinase Index 1.9 Creatinine Kinase MB (Mass) 0.83 Troponin I < 0.012 Urine Color YELLOW Urine Clarity CLEAR Urine pH 6.0 Urine Specific [place] 1.017 Urine Ketones 1+ H Urine Nitrite NEGATIVE Urine Bilirubin NEGATIVE Urine Urobilinogen NEGATIVE Urine Leukocyte Esterase NEGATIVE Urine Hemoglobin NEGATIVE Urine Glucose NEGATIVE Urine Total Protein NEGATIVE White Blood Count 9.6 # Red Blood Count 4.07 L Hemoglobin 10.1 L Hematocrit 33.3 L Mean Corpuscular Volume 81.8 L Mean Corpuscular Hemoglobin 24.8 L Mean Corpuscular Hemoglobin Concent 30.3 L Red Cell Distribution Width 14.6 H Platelet Count 191 # Mean Platelet Volume 11.0 H Neutrophils % 58.7 Lymphocytes % 32.7 Monocytes % 7.9 Eosinophils % 0.1 Basophils % 0.3 Nucleated Red Blood Cells % 0.0 Neutrophils # (Manual) 5.6 Lymphocytes # 3.1 H Monocytes # 0.8 Eosinophils # 0.0 Basophils # 0.0 Nucleated Red Blood Cells # 0.0 Sodium Level 139 Potassium Level 4.1 Chloride Level 106 Carbon Dioxide Level 28 Anion Gap 9 Blood Urea Nitrogen 17 Creatinine 0.67 Glucose Level 85 Hemoglobin A1c 5.9 Calcium Level 9.0 Phosphorus Level 4.5 Magnesium Level 1.9 Total Bilirubin 0.5 Direct Bilirubin 0.00 Indirect Bilirubin 0.5 Aspartate Amino Transf (AST/SGOT) 28 Alanine Aminotransferase (ALT/SGPT) 54 Alkaline Phosphatase 96 Total Protein 6.0 #L Albumin 3.3 # Globulin 2.70 Albumin/Globulin Ratio 1.22 Triglycerides Level 170 H Cholesterol Level 170 LDL Cholesterol, Calculated 87 HDL Cholesterol 49 Cholesterol/HDL Ratio 3.4 Thyroid Stimulating Hormone (TSH) 1.710 Medications Current Medications Ondansetron HCl (Zofran Inj) 4 mg Q6H PRN IV NAUSEA AND/OR VOMITING; Start 08/18 at 16:00 Acetaminophen (Tylenol Tab) 650 mg Q6H PRN PO PAIN LEVEL 1-3 OR FEVER Last administered on 06/13/17 09:46; Admin Dose 650 MG; Start 06/12/17 at 16:00 Acetaminophen/ Hydrocodone Bitart ([place] (5/325)) 1 tab Q6H PRN PO MODERATE PAIN LEVEL 4-6 Last administered on 06/12/17 17:30; Admin Dose 1 TAB; Start 08/18 at 16:00 Morphine Sulfate (morphine) 1 mg Q6H PRN IV SEVERE PAIN LEVEL 7-10; Start 06/12 at 16:00 Docusate Sodium (Colace) 100 mg Q12H PRN PO CONSTIPATION; Start 06/12/17 at 16: 00 Magnesium Hydroxide (Milk Of Mag) 30 ml DAILY PRN PO CONSTIPATION; Start at 16:00 Sodium Biphosphate/ Sodium Phosphate (Fleet Enema) 133 ml DAILY PRN [place] CONSTIPATION; Start 06/12/17 at 16:00 Famotidine (Pepcid Iv) 20 mg Q12 IV Last administered on 06/13/17 08:08; Admin Dose 20 MG; Start 06/12/17 at 21:00 Heparin Sodium (Porcine) 5000 unit 5,000 unit Q12 SC Last administered on 08:12; Admin Dose 5,000 UNIT; Start 06/12/17 at 21:00 Sodium Chloride (1/2 NS) 1,000 ml @ 75 mls/hr [id number] IV Last administered on 06/13/17 08:17; Admin Dose 75 MLS/HR; Start 06/12/17 at 15:38 Lorazepam 0.5 mg 0.5 mg Q6H PRN IV ANXIETY; Start 06/12/17 at 16:00 Levofloxacin/ Dextrose (Levaquin 750 Mg/ D5W 150 ml (Pmx)) 150 ml @ 100 mls/hr Q24H IVPB Last administered on 06/13/17 15:52; Admin Dose 100 MLS/HR; Start at 16:30 Hydralazine HCl (Apresoline) 10 mg Q6H PRN IV ELEVATED BLOOD PRESSURE; Start at 16:00 Clonidine (Catapres) 0.1 mg Q6H PRN PO ELEVATED BLOOD PRESSURE Last administered on 06/12/17 20:35; Admin Dose 0.1 MG; Start 06/12/17 at 16:00 Nitroglycerin (Nitroglycerin (Sl Tab) 0.4 Mg) 1 tab Q5M PRN SL ANGINA; Start at 16:00 Ketorolac Tromethamine (Toradol) 30 mg Q6H PRN IV PAIN Last administered on 13:37; Admin Dose 30 MG; Start 06/12/17 at 22:00; Stop 06/15/17 at 21:59 Assessment/Plan Chief Complaint/Hosp Course 1. chest pain: [place] was ruled out 2. Marked sinus bradycardia: probably related to GI pain : asymptomatic 3. HTN: probably at least partially related to pain 4. eigastric pain: r/o PUD. no need for ASA Hydralazine po for HTN GI work up as per IM CT deloris angio did show any evidence of CAD Thank you for his referral. TIFFANIE ADDISON MD [facility] Problems: TIFFANIE ADDISON MD Jun 13, 2017 18:51
[2017-06-14] VITALS (13 sets, daily range): BP systolic 115–145; BP diastolic 54–71; PULSE 44–58; RESP 16–21
[2017-06-14] MEDS: KETOROLAC 30 MG INJ IV PRN ×2 (01:58→11:23)
[2017-06-14] MEDS: SOD CHLORIDE 0.45% 1,000 ML IV SCH ×4 (01:58→20:58)
--- NOTE | 2017-06-14 08:30 | CONS ---
Date/Time of Note Date/Time of Note DATE: 06/14/17 TIME: 08:29 Consult Date/Type/Reason Admit Date/Time Jun 12, 2017 at 15:18 Initial Consult Date 06/12/17 Type of Consultation: CARDIOLOGY Subjective d/w staff and rhythm was reviewed. pt remains in Sinus iris mostly but no syncope or presyncope or dizziness her chest pain has resolved. mild epigastric pain only with touch now OBJECTIVE; General: no acute distress HEENT: NC/AT. pupils are equal. round. NECK: NO JVD. no stridor. CV: BRADYCARDIC. systolic murmur; no gallop or rubs. PULM: no wheezing or rhonchi. GI: SOFT, + mild tenderness epigastric area, ND, no rebound or guarding Extremity: trace B/L LE edema. no clubbing. neuro: awake and alert, OX3. Psych: calm and pleasant rectal: deferred : normal ECG: personally reviewed marked sinus brdy. nonspecific T wave abn ECHO personally reviewed; 1. Normal left ventricular systolic function. Normal left ventricular cavity size. Normal left ventricular wall thickness. Ejection fraction is visually estimated at 65 %. Tissue Doppler/Mitral Doppler indices are consistent with impaired relaxation (Stage I diastolic dysfunction). 2. Normal appearance of the tricuspid valve. Estimated peak PA systolic pressure 39 mmHg. There is mild tricuspid regurgitation. 3. Normal appearance of the aortic valve. No significant aortic stenosis or insufficiency. 4. Mild mitral leaflet calcification. Mild mitral annular calcification. Mild mitral valve regurgitation. 5. Dilated inferior vena cava with poor inspiratory collapse consistent with elevated right atrial pressures. CT deloris angio: normal Objective Vital Signs Date Time Temp Pulse Resp B/P Pulse Ox O2 Delivery O2 Flow Rate FiO2 06/14/17 07:49 98.3 48 20 137/71 100 06/14/17 05:16 2.0 06/13/17 19:31 Nasal Cannula Intake and Output 06/13/17 06/13/17 06/14/17 15:00 23:00 07:00 Intake Total 250 ml 1200 ml Output Total 800 ml 1200 ml Balance -550 ml 0 ml Results/Medications Result Diagram: 06/13/17 0644 06/13/17 0644 Medications Current Medications Ondansetron HCl (Zofran Inj) 4 mg Q6H PRN IV NAUSEA AND/OR VOMITING; Start 08/18 at 16:00 Acetaminophen (Tylenol Tab) 650 mg Q6H PRN PO PAIN LEVEL 1-3 OR FEVER Last administered on 06/13/17 20:13; Admin Dose 650 MG; Start 06/12/17 at 16:00 Acetaminophen/ Hydrocodone Bitart ([place] (5/325)) 1 tab Q6H PRN PO MODERATE PAIN LEVEL 4-6 Last administered on 06/12/17 17:30; Admin Dose 1 TAB; Start 08/18 at 16:00 Morphine Sulfate (morphine) 1 mg Q6H PRN IV SEVERE PAIN LEVEL 7-10; Start 06/12 at 16:00 Docusate Sodium (Colace) 100 mg Q12H PRN PO CONSTIPATION; Start 06/12/17 at 16: 00 Magnesium Hydroxide (Milk Of Mag) 30 ml DAILY PRN PO CONSTIPATION; Start at 16:00 Sodium Biphosphate/ Sodium Phosphate (Fleet Enema) 133 ml DAILY PRN [place] CONSTIPATION; Start 06/12/17 at 16:00 Famotidine (Pepcid Iv) 20 mg Q12 IV Last administered on 06/13/17 20:13; Admin Dose 20 MG; Start 06/12/17 at 21:00 Heparin Sodium (Porcine) 5000 unit 5,000 unit Q12 SC Last administered on 20:20; Admin Dose 5,000 UNIT; Start 06/12/17 at 21:00 Sodium Chloride (1/2 NS) 1,000 ml @ 75 mls/hr [id number] IV Last administered on 06/14/17 01:58; Admin Dose 75 MLS/HR; Start 06/12/17 at 15:38 Lorazepam 0.5 mg 0.5 mg Q6H PRN IV ANXIETY; Start 06/12/17 at 16:00 Levofloxacin/ Dextrose (Levaquin 750 Mg/ D5W 150 ml (Pmx)) 150 ml @ 100 mls/hr Q24H IVPB Last administered on 06/13/17 15:52; Admin Dose 100 MLS/HR; Start at 16:30 Hydralazine HCl (Apresoline) 10 mg Q6H PRN IV ELEVATED BLOOD PRESSURE; Start at 16:00 Clonidine (Catapres) 0.1 mg Q6H PRN PO ELEVATED BLOOD PRESSURE Last administered on 06/12/17 20:35; Admin Dose 0.1 MG; Start 06/12/17 at 16:00 Nitroglycerin (Nitroglycerin (Sl Tab) 0.4 Mg) 1 tab Q5M PRN SL ANGINA; Start at 16:00 Ketorolac Tromethamine (Toradol) 30 mg Q6H PRN IV PAIN Last administered on 01:58; Admin Dose 30 MG; Start 06/12/17 at 22:00; Stop 06/15/17 at 21:59 Assessment/Plan Chief Complaint/Hosp Course 1. chest pain: [place] was ruled out 2. Marked sinus bradycardia: probably vasovagal related to GI pain : asymptomatic 3. HTN: probably at least partially related to pain : well controlled now 4. eigastric pain: r/o PUD vs others no need for ASA Hydralazine po for HTN GI work up as per IM CT deloris angio did show any evidence of CAD. no further cardiac work up is indicated. Thank you for his referral. TIFFANIE ADDISON MD [facility] Problems: TIFFANIE ADDISON MD Jun 14, 2017 08:30
[2017-06-14] MEDS: ACETAMINOPHEN 325 MG TAB PO PRN ×2 (08:36→21:26)
[2017-06-14] MEDS: FAMOTIDINE 20 MG INJ IV SCH ×2 (08:38→21:12)
[2017-06-14] MEDS: HEPARIN 5,000 UNIT/0.5 ML VIAL SC SCH ×2 (08:45→21:18)
[2017-06-14] MEDS: ONDANSETRON 4 MG INJ IV PRN (09:22)
[2017-06-14 10:15] LABS: BASOPHILS % 0.5 % (0.0-2.0); EOSINOPHILS # 0.1 10^3/ul (0.0-0.5); EOSINOPHILS % 0.8 % (0.0-7.0); HEMATOCRIT 34.7 % (37.0-47.0); HEMOGLOBIN 10.7 g/dl (12.0-16.0); LYMPHOCYTES # 1.6 10^3/ul (0.8-2.9); LYMPHOCYTES % 21.1 % (15.0-51.0); MEAN CORPUSCULAR HEMOGLOBIN 24.9 pg (29.0-33.0); MEAN CORPUSCULAR HGB CONC 30.8 g/dl (32.0-37.0); MEAN CORPUSCULAR VOLUME 80.9 fl (82.0-101.0); MONOCYTE # 0.6 10^3/ul (0.3-0.9); MONOCYTES % 7.2 % (0.0-11.0); NEUTROPHILS % 70.1 % (39.0-77.0); PLATELET COUNT 187 10^3/UL (140-415); RED BLOOD COUNT 4.29 10^6/ul (4.20-5.40); RED CELL DISTRIBUTION WIDTH 14.3 % (11.5-14.5); WHITE BLOOD COUNT 7.7 10^3/ul (4.8-10.8)
[2017-06-14 10:34] LABS: CREATININE 0.56 mg/dl (0.44-1.00); POTASSIUM 3.7 mmol/L (3.5-5.1)
--- NOTE | 2017-06-14 11:42 | PN ---
Date/Time of Note Date/Time of Note DATE: 06/14/17 TIME: 11:38 Assessment/Plan VTE Prophylaxis VTE Prophylaxis Intervention: heparin Lines/Catheters IV Catheter Type (from Nrsg): Peripheral IV Assessment/Plan Assessment/Plan 1. Epigastric pain, gastritis versus PUD, on protonix, improving but symptoms persistent, GI for EGD 2. chest pain, GI-related, normal coronary CTA, 3. Sinus bradycardia, normal TSH, asymptomatic, no treatment needed at this point 4. DVT prophylaxis: heparin Subjective 24 Hr Interval Summary Free Text/Dictation no chest pain, but still has epigastric pain and nausea Exam/Review of Systems Vital Signs Vitals Vital Signs Date Time Temp Pulse Resp B/P Pulse Ox O2 Delivery O2 Flow Rate FiO2 06/14/17 09:05 48 06/14/17 07:49 98.3 20 137/71 100 06/14/17 05:16 2.0 06/13/17 19:31 Nasal Cannula Intake and Output 06/13/17 06/13/17 06/14/17 15:00 23:00 07:00 Intake Total 250 ml 1200 ml Output Total 800 ml 1200 ml Balance -550 ml 0 ml Exam Constitutional: alert, oriented, well developed Psych: nl mood/affect, no complaints Head: atraumatic, normocephalic Eyes: EOMI, PERRL, nl conjunctiva, nl lids ENMT: nl external ears & nose, nl lips & teeth, nl nasal mucosa & septum Neck: non-tender, supple Respiratory: clear to auscultation, normal air movement, No crackles/rales, No diminished breath sounds, No intercostal retraction, No labored breathing, No other, No respirations, No tactile fremitus, No wheezing Cardiovascular: nl pulses, regular rate and rhythm, No S3, No S4, No bruits, No diastolic murmur, No edema, No gallop, No irregular rhythm, No jugular venous distention (JVD), No murmurs/extra sounds, No other, No rub, No systolic murmur Gastrointestinal: nl liver, spleen, non-tender, soft, tender (epigastric tenderness), No ascites, No bowel sounds, No distended, No firm, No hepatomegaly, No mass , No other, No rebound or guarding, No splenomegaly, No surgical scars Musculoskeletal: nl extremities to inspection Extremities: normal pulses, No calf tenderness, No clubbing, No cyanosis, No edema, No other, No palpable cord, No pitting pedal edema, No tenderness Neurological: INS[employer]ICATION[employer] II-XII intact, nl mental status, nl speech, nl strength Skin: nl turgor Results Result Diagram: 06/14/17 1000 06/14/17 1000 Results 24 hrs Laboratory Tests Test 06/14/17 10:00 White Blood Count 7.7 Red Blood Count 4.29 Hemoglobin 10.7 L Hematocrit 34.7 L Mean Corpuscular Volume 80.9 L Mean Corpuscular Hemoglobin 24.9 L Mean Corpuscular Hemoglobin Concent 30.8 L Red Cell Distribution Width 14.3 Platelet Count 187 Mean Platelet Volume 11.0 H Neutrophils % 70.1 Lymphocytes % 21.1 Monocytes % 7.2 Eosinophils % 0.8 Basophils % 0.5 Nucleated Red Blood Cells % 0.0 Neutrophils # (Manual) 5.4 Lymphocytes # 1.6 Monocytes # 0.6 Eosinophils # 0.1 Basophils # 0.0 Nucleated Red Blood Cells # 0.0 Sodium Level 140 Potassium Level 3.7 Chloride Level 108 Carbon Dioxide Level 24 Anion Gap 12 Blood Urea Nitrogen 14 Creatinine 0.56 Glucose Level 113 Calcium Level 9.0 Medications Medications Current Medications Ondansetron HCl (Zofran Inj) 4 mg Q6H PRN IV NAUSEA AND/OR VOMITING Last administered on 06/14/17 09:22; Admin Dose 4 MG; Start 06/12/17 at 16:00 Acetaminophen (Tylenol Tab) 650 mg Q6H PRN PO PAIN LEVEL 1-3 OR FEVER Last administered on 06/14/17 08:36; Admin Dose 650 MG; Start 06/12/17 at 16:00 Acetaminophen/ Hydrocodone Bitart ([place] (5/325)) 1 tab Q6H PRN PO MODERATE PAIN LEVEL 4-6 Last administered on 06/12/17 17:30; Admin Dose 1 TAB; Start 08/18 at 16:00 Morphine Sulfate (morphine) 1 mg Q6H PRN IV SEVERE PAIN LEVEL 7-10; Start 06/12 at 16:00 Docusate Sodium (Colace) 100 mg Q12H PRN PO CONSTIPATION; Start 06/12/17 at 16: 00 Magnesium Hydroxide (Milk Of Mag) 30 ml DAILY PRN PO CONSTIPATION; Start at 16:00 Sodium Biphosphate/ Sodium Phosphate (Fleet Enema) 133 ml DAILY PRN [place] CONSTIPATION; Start 06/12/17 at 16:00 Famotidine (Pepcid Iv) 20 mg Q12 IV Last administered on 06/14/17 08:38; Admin Dose 20 MG; Start 06/12/17 at 21:00 Heparin Sodium (Porcine) 5000 unit 5,000 unit Q12 SC Last administered on 08:45; Admin Dose 5,000 UNIT; Start 06/12/17 at 21:00 Sodium Chloride (1/2 NS) 1,000 ml @ 75 mls/hr [id number] IV Last administered on 06/14/17 01:58; Admin Dose 75 MLS/HR; Start 06/12/17 at 15:38 Lorazepam 0.5 mg 0.5 mg Q6H PRN IV ANXIETY; Start 06/12/17 at 16:00 Levofloxacin/ Dextrose (Levaquin 750 Mg/ D5W 150 ml (Pmx)) 150 ml @ 100 mls/hr Q24H IVPB Last administered on 06/13/17 15:52; Admin Dose 100 MLS/HR; Start at 16:30 Hydralazine HCl (Apresoline) 10 mg Q6H PRN IV ELEVATED BLOOD PRESSURE; Start at 16:00 Clonidine (Catapres) 0.1 mg Q6H PRN PO ELEVATED BLOOD PRESSURE Last administered on 06/12/17 20:35; Admin Dose 0.1 MG; Start 06/12/17 at 16:00 Nitroglycerin (Nitroglycerin (Sl Tab) 0.4 Mg) 1 tab Q5M PRN SL ANGINA; Start at 16:00 Ketorolac Tromethamine (Toradol) 30 mg Q6H PRN IV PAIN Last administered on 11:23; Admin Dose 30 MG; Start 06/12/17 at 22:00; Stop 06/15/17 at 21:59 KATE SEARS MD Jun 14, 2017 11:41
--- NOTE | 2017-06-14 13:33 | CONS ---
Date/Time of Note Date/Time of Note DATE: 06/14/17 TIME: 13:21 Assessment/Plan Assessment/Plan Additional Assessment/Plan Assessment * Chest pain * Epigastric pain * Bradycardia Plan * EGD risk and benefit explained to patient and agreed with the planned procedure * NPOI * Continue present management Consultation Date/Type/Reason Admit Date/Time Jun 12, 2017 at 15:18 Type of Consultation: gastroenterology Reason for Consultation epigastric pain Referring Provider: NICKOLAS PAGAN of Present Illness 47 year old female with past medical history section,low back pain and sciatica presented in the emergency room complaining of epigastric pain x2 days with associated nausea and vomiting.Emergency room course revealed a hypertensive patient with bradycardia with associated cold clammy skin .patient was admitted and seen by cardiology.CT coronary angiography is normal.Patient denies any vomiting but with nausea.Presently patiwent denies any chest pain but still with epigastric pain ,no hematemesis nor fever. I have talk with the patient and explained to her the planned to do EGD later in the afternoon and agreed with procedure Psychological: nl mood/affect, no complaints Past Medical History Medical History: other (sciatica) Social History Alcohol Use: none Smoking Status: Never smoker Exam/Review of Systems Vital Signs Vitals Vital Signs Date Time Temp Pulse Resp B/P Pulse Ox O2 Delivery O2 Flow Rate FiO2 06/14/17 12:25 48 06/14/17 11:55 98.6 20 141/67 100 06/14/17 05:16 2.0 06/13/17 19:31 Nasal Cannula Intake and Output 06/13/17 06/13/17 06/14/17 15:00 23:00 07:00 Intake Total 250 ml 1200 ml Output Total 800 ml 1200 ml Balance -550 ml 0 ml Exam Constitutional: alert, oriented, well developed Psych: nl mood/affect, no complaints Head: atraumatic, normocephalic Eyes: EOMI, PERRL, nl conjunctiva, nl lids, nl sclera ENMT: nl external ears & nose, nl lips & teeth, nl nasal mucosa & septum Neck: non-tender, supple Respiratory: clear to auscultation, normal air movement Cardiovascular: nl pulses, regular rate and rhythm Gastrointestinal: nl liver, spleen, non-tender, soft Musculoskeletal: nl extremities to inspection, nl gait and stance Extremities: normal pulses Neurological: nl mental status, nl speech, nl strength Skin: nl turgor, No rash or lesions Lymph: nl lymph nodes Results Result Diagram: 06/14/17 1000 06/14/17 1000 Results 24 hrs Laboratory Tests Test 06/14/17 10:00 White Blood Count 7.7 Red Blood Count 4.29 Hemoglobin 10.7 L Hematocrit 34.7 L Mean Corpuscular Volume 80.9 L Mean Corpuscular Hemoglobin 24.9 L Mean Corpuscular Hemoglobin Concent 30.8 L Red Cell Distribution Width 14.3 Platelet Count 187 Mean Platelet Volume 11.0 H Neutrophils % 70.1 Lymphocytes % 21.1 Monocytes % 7.2 Eosinophils % 0.8 Basophils % 0.5 Nucleated Red Blood Cells % 0.0 Neutrophils # (Manual) 5.4 Lymphocytes # 1.6 Monocytes # 0.6 Eosinophils # 0.1 Basophils # 0.0 Nucleated Red Blood Cells # 0.0 Sodium Level 140 Potassium Level 3.7 Chloride Level 108 Carbon Dioxide Level 24 Anion Gap 12 Blood Urea Nitrogen 14 Creatinine 0.56 Glucose Level 113 Calcium Level 9.0 Medications Medications Current Medications Ondansetron HCl (Zofran Inj) 4 mg Q6H PRN IV NAUSEA AND/OR VOMITING Last administered on 06/14/17 09:22; Admin Dose 4 MG; Start 06/12/17 at 16:00 Acetaminophen (Tylenol Tab) 650 mg Q6H PRN PO PAIN LEVEL 1-3 OR FEVER Last administered on 06/14/17 08:36; Admin Dose 650 MG; Start 06/12/17 at 16:00 Acetaminophen/ Hydrocodone Bitart ([place] (5/325)) 1 tab Q6H PRN PO MODERATE PAIN LEVEL 4-6 Last administered on 06/12/17 17:30; Admin Dose 1 TAB; Start 08/18 at 16:00 Morphine Sulfate (morphine) 1 mg Q6H PRN IV SEVERE PAIN LEVEL 7-10; Start 06/12 at 16:00 Docusate Sodium (Colace) 100 mg Q12H PRN PO CONSTIPATION; Start 06/12/17 at 16: 00 Magnesium Hydroxide (Milk Of Mag) 30 ml DAILY PRN PO CONSTIPATION; Start at 16:00 Sodium Biphosphate/ Sodium Phosphate (Fleet Enema) 133 ml DAILY PRN OR CONSTIPATION; Start 06/12/17 at 16:00 Famotidine (Pepcid Iv) 20 mg Q12 IV Last administered on 06/14/17 08:38; Admin Dose 20 MG; Start 06/12/17 at 21:00 Heparin Sodium (Porcine) 5000 unit 5,000 unit Q12 SC Last administered on 08:45; Admin Dose 5,000 UNIT; Start 06/12/17 at 21:00 Sodium Chloride (1/2 NS) 1,000 ml @ 75 mls/hr [id number] IV Last administered on 06/14/17 01:58; Admin Dose 75 MLS/HR; Start 06/12/17 at 15:38 Lorazepam 0.5 mg 0.5 mg Q6H PRN IV ANXIETY; Start 06/12/17 at 16:00 Levofloxacin/ Dextrose (Levaquin 750 Mg/ D5W 150 ml (Pmx)) 150 ml @ 100 mls/hr Q24H IVPB Last administered on 06/13/17 15:52; Admin Dose 100 MLS/HR; Start at 16:30 Hydralazine HCl (Apresoline) 10 mg Q6H PRN IV ELEVATED BLOOD PRESSURE; Start at 16:00 Clonidine (Catapres) 0.1 mg Q6H PRN PO ELEVATED BLOOD PRESSURE Last administered on 06/12/17 20:35; Admin Dose 0.1 MG; Start 06/12/17 at 16:00 Nitroglycerin (Nitroglycerin (Sl Tab) 0.4 Mg) 1 tab Q5M PRN SL ANGINA; Start at 16:00 Ketorolac Tromethamine (Toradol) 30 mg Q6H PRN IV PAIN Last administered on 11:23; Admin Dose 30 MG; Start 06/12/17 at 22:00; Stop 06/15/17 at 21:59 ULISES DRAKE NP Jun 14, 2017 13:32
[2017-06-14] MEDS: LEVOFLOXACIN 750MG/D5W (PMX) 150 ML IVPB SCH ×2 (16:30→17:54)
--- NOTE | 2017-06-14 18:15 | QN ---
Documentation Comment Patient informed me anesthesiology she solids i.e. rice and vegetables around 1230. Anesthesia canceled the case as patient requires at least 8 hours n.p.o. We will attempt to reschedule tomorrow depending on logistic availability MAC CURRAN MD Jun 14, 2017 18:15
[2017-06-15] VITALS (11 sets, daily range): BP systolic 119–138; BP diastolic 56–72; PULSE 45–64; RESP 10–19
[2017-06-15] MEDS: HEPARIN 5,000 UNIT/0.5 ML VIAL SC SCH (08:30)
[2017-06-15] MEDS: FAMOTIDINE 20 MG INJ IV SCH (08:32)
--- NOTE | 2017-06-15 08:51 | CONS ---
Date/Time of Note Date/Time of Note DATE: 06/15/17 TIME: 08:50 Consult Date/Type/Reason Admit Date/Time Jun 12, 2017 at 15:18 Initial Consult Date 06/12/17 Type of Consultation: CARDIOLOGY Ordering Provider: NICKOLAS PAGAN Subjective d/w staff and rhythm was reviewed. pt remains in Sinus iris mostly but no syncope or presyncope or dizziness her chest pain has resolved. mild epigastric pain only with touch now Awaiting EGD OBJECTIVE; General: no acute distress HEENT: NC/AT. pupils are equal. round. NECK: NO JVD. no stridor. CV: BRADYCARDIC. systolic murmur; no gallop or rubs. PULM: no wheezing or rhonchi. GI: SOFT, + mild tenderness epigastric area, ND, no rebound or guarding Extremity: trace B/L LE edema. no clubbing. neuro: awake and alert, OX3. Psych: calm and pleasant rectal: deferred : normal ECG: personally reviewed marked sinus brdy. nonspecific T wave abn ECHO personally reviewed; 1. Normal left ventricular systolic function. Normal left ventricular cavity size. Normal left ventricular wall thickness. Ejection fraction is visually estimated at 65 %. Tissue Doppler/Mitral Doppler indices are consistent with impaired relaxation (Stage I diastolic dysfunction). 2. Normal appearance of the tricuspid valve. Estimated peak PA systolic pressure 39 mmHg. There is mild tricuspid regurgitation. 3. Normal appearance of the aortic valve. No significant aortic stenosis or insufficiency. 4. Mild mitral leaflet calcification. Mild mitral annular calcification. Mild mitral valve regurgitation. 5. Dilated inferior vena cava with poor inspiratory collapse consistent with elevated right atrial pressures. CT deloris angio: normal Objective Vital Signs Date Time Temp Pulse Resp B/P Pulse Ox O2 Delivery O2 Flow Rate FiO2 06/15/17 08:31 45 06/15/17 07:54 98.0 17 138/61 98 06/14/17 17:15 Room Air 06/14/17 05:16 2.0 Intake and Output 06/14/17 06/14/17 06/15/17 14:59 22:59 06:59 Intake Total 1400 ml 1140 ml Balance 1400 ml 1140 ml Results/Medications Result Diagram: 06/14/17 1000 06/14/17 1000 Results 24 hrs Laboratory Tests Test 06/14/17 10:00 White Blood Count 7.7 Red Blood Count 4.29 Hemoglobin 10.7 L Hematocrit 34.7 L Mean Corpuscular Volume 80.9 L Mean Corpuscular Hemoglobin 24.9 L Mean Corpuscular Hemoglobin Concent 30.8 L Red Cell Distribution Width 14.3 Platelet Count 187 Mean Platelet Volume 11.0 H Neutrophils % 70.1 Lymphocytes % 21.1 Monocytes % 7.2 Eosinophils % 0.8 Basophils % 0.5 Nucleated Red Blood Cells % 0.0 Neutrophils # (Manual) 5.4 Lymphocytes # 1.6 Monocytes # 0.6 Eosinophils # 0.1 Basophils # 0.0 Nucleated Red Blood Cells # 0.0 Sodium Level 140 Potassium Level 3.7 Chloride Level 108 Carbon Dioxide Level 24 Anion Gap 12 Blood Urea Nitrogen 14 Creatinine 0.56 Glucose Level 113 Calcium Level 9.0 Medications Current Medications Ondansetron HCl (Zofran Inj) 4 mg Q6H PRN IV NAUSEA AND/OR VOMITING Last administered on 06/14/17 09:22; Admin Dose 4 MG; Start 06/12/17 at 16:00 Acetaminophen (Tylenol Tab) 650 mg Q6H PRN PO PAIN LEVEL 1-3 OR FEVER Last administered on 06/14/17 21:26; Admin Dose 650 MG; Start 06/12/17 at 16:00 Acetaminophen/ Hydrocodone Bitart ([place] (5/325)) 1 tab Q6H PRN PO MODERATE PAIN LEVEL 4-6 Last administered on 06/12/17 17:30; Admin Dose 1 TAB; Start 08/18 at 16:00 Morphine Sulfate (morphine) 1 mg Q6H PRN IV SEVERE PAIN LEVEL 7-10; Start 06/12 at 16:00 Docusate Sodium (Colace) 100 mg Q12H PRN PO CONSTIPATION; Start 06/12/17 at 16: 00 Magnesium Hydroxide (Milk Of Mag) 30 ml DAILY PRN PO CONSTIPATION; Start at 16:00 Sodium Biphosphate/ Sodium Phosphate (Fleet Enema) 133 ml DAILY PRN [place] CONSTIPATION; Start 06/12/17 at 16:00 Famotidine (Pepcid Iv) 20 mg Q12 IV Last administered on 06/15/17 08:32; Admin Dose 20 MG; Start 06/12/17 at 21:00 Heparin Sodium (Porcine) 5000 unit 5,000 unit Q12 SC Last administered on 21:18; Admin Dose 5,000 UNIT; Start 06/12/17 at 21:00 Sodium Chloride (1/2 NS) 1,000 ml @ 75 mls/hr [id number] IV Last administered on 06/14/17 17:54; Admin Dose 75 MLS/HR; Start 06/12/17 at 15:38 Lorazepam 0.5 mg 0.5 mg Q6H PRN IV ANXIETY; Start 06/12/17 at 16:00 Levofloxacin/ Dextrose (Levaquin 750 Mg/ D5W 150 ml (Pmx)) 150 ml @ 100 mls/hr Q24H IVPB Last administered on 06/14/17 17:54; Admin Dose 100 MLS/HR; Start at 16:30 Hydralazine HCl (Apresoline) 10 mg Q6H PRN IV ELEVATED BLOOD PRESSURE; Start at 16:00 Clonidine (Catapres) 0.1 mg Q6H PRN PO ELEVATED BLOOD PRESSURE Last administered on 06/12/17 20:35; Admin Dose 0.1 MG; Start 06/12/17 at 16:00 Nitroglycerin (Nitroglycerin (Sl Tab) 0.4 Mg) 1 tab Q5M PRN SL ANGINA; Start at 16:00 Ketorolac Tromethamine (Toradol) 30 mg Q6H PRN IV PAIN Last administered on 11:23; Admin Dose 30 MG; Start 06/12/17 at 22:00; Stop 06/15/17 at 21:59 Assessment/Plan Chief Complaint/Hosp Course 1. chest pain: ID was ruled out 2. Marked sinus bradycardia: probably vasovagal related to GI pain : asymptomatic 3. HTN: probably at least partially related to pain : well controlled now 4. eigastric pain: r/o PUD vs others no need for ASA Hydralazine po for HTN GI work up as per GI,. EGD is pending today CT deloris angio did show any evidence of CAD. no further cardiac work up is indicated. ok to dc tele from cardiac stand point Thank you for his referral. TIFFANIE ADDISON MD [facility] Problems: TIFFANIE ADDISON MD Jun 15, 2017 08:51
[2017-06-15 09:35] LABS: BASOPHILS % 0.4 % (0.0-2.0); EOSINOPHILS # 0.2 10^3/ul (0.0-0.5); EOSINOPHILS % 2.8 % (0.0-7.0); HEMOGLOBIN 10.7 g/dl (12.0-16.0); LYMPHOCYTES # 1.7 10^3/ul (0.8-2.9); LYMPHOCYTES % 25.4 % (15.0-51.0); MEAN CORPUSCULAR HEMOGLOBIN 25.4 pg (29.0-33.0); MEAN CORPUSCULAR HGB CONC 31.5 g/dl (32.0-37.0); MEAN CORPUSCULAR VOLUME 80.6 fl (82.0-101.0); MEAN PLATELET VOLUME 10.5 fl (7.4-10.4); MONOCYTE # 0.5 10^3/ul (0.3-0.9); MONOCYTES % 7.9 % (0.0-11.0); NEUTROPHIL # 4.3 10^3/ul (1.6-7.5); NEUTROPHILS % 63.1 % (39.0-77.0); PLATELET COUNT 185 10^3/UL (140-415); RED BLOOD COUNT 4.22 10^6/ul (4.20-5.40); WHITE BLOOD COUNT 6.9 10^3/ul (4.8-10.8)
[2017-06-15 09:55] LABS: CALCIUM 9.2 mg/dl (8.4-10.2); CREATININE 0.66 mg/dl (0.44-1.00)
[2017-06-15] MEDS: SOD CHLORIDE 0.45% 1,000 ML IV SCH (10:18)
[2017-06-15] MEDS ORDERED: PROPOFOL 20 ML ONE (11:31)
[2017-06-15] MEDS ORDERED: FENTAnyl 50 MCG/ML VIAL ONE (11:31)
--- NOTE | 2017-06-15 12:45 | OPPN ---
Date/Time of Note Date/Time of Note DATE: 06/15/17 TIME: 12:41 Proc Note GI Procedure Date 06/15/17 Pre-procedure Diagnosis * Atypical chest pain Post-procedure Diagnosis Assessment: * Normal esophagus * Rule out eosinophilic esophagitis. Biopsies obtained mid esophagus * Moderate erosive gastritis. Rule out H. pylori infection. Biopsies obtained Plan: * Protonix 40 mg daily * Review biopsies as soon as available * Advance diet as tolerated * Patient appears safe for outpatient follow-up Procedure Performed: Endoscopy Soft Work Wrapper Layer And Examiner none Anesthesia Type: MAC Anesthesiologist: NEREIDA MATOS MD EBL none Transfusion required none Biopsy 1: Body and antrum of the stomach Biopsy 2: Mid esophagus Grafts/Implants none Complication(s) none Pt Condition post procedure: stable Disposition: PACU Indications: other (Atypical chest pain) Procedure Description After informed consent, with the patient/relatives understanding the procedure, its indications, potential risks and complications, including but not limited to : allergic reaction, bleeding, perforation or infection, and after all pertinent questions were answered to the patients satisfaction, the patient/ relatives signed witnessed informed consent. Following this, premedication was administered slowly IV push under careful cardiovascular and respiratory monitoring with pulse oximetry, automatic blood pressure, and director hris. Once the sedative effect was achieved the patient was place in the left lateral decubitus, the panendoscope was introduced and advanced under visual control. Careful examination of the upper gastrointestinal tract, both on insertion as well as withdrawal of the instrument disclosing the following findings: ESOPHAGUS: the mucosa of the entire esophagus was carefully examined and showed the following findings: the mucosa appears within normal limits. There is no evidence of esophagitis, varices, neoplasm, or stricture. No Hiatal Hernia identified. Biopsies were obtained to mid esophagus to rule out eosinophilic esophagitis. STOMACH: Upon entrance to the stomach air was insufflated, the gastric chong distended normally. The mucosa of the fundus, body and antrum of the stomach was carefully examined both head-on and on retroflexion, and showed the following findings: There is moderate erythema and edema as well as erosions in the antrum of the stomach. Biopsies were obtained to rule out H. pylori infection. Otherwise the mucosa appears within normal limits with no abnormalities. There is no evidence of ulcers or neoplasm. PYLORUS: The pylorus was carefully examined and showed the following findings: the pylorus appears patent and within normal limits, with no evidence of gastric outlet obstruction. DUODENUM: The duodenal mucosa was carefully examined in the duodenal bulb as well as the second portion of the duodenum and showed the following findings: the mucosa appears unremarkable with no evidence of duodenitis, ulcer or neoplasm. MAC CURRAN MD Jun 15, 2017 12:44
[2017-06-15] MEDS: KETOROLAC 30 MG INJ IV PRN (13:19)
[2017-06-15] MEDS: ONDANSETRON 4 MG INJ IV PRN (13:19)
[2017-06-15] MEDS ORDERED: PANT40TA3 PO (13:50)
--- NOTE | 2017-06-15 13:57 | DS ---
Date/Time of Note Date/Time of Note DATE: 06/15/17 TIME: 13:51 Discharge Summary Admission/Discharge Info Admit Date/Time Jun 12, 2017 at 15:18 Discharge Date/Time Discharge Diagnosis 1. Gastritis, s/p EGD, on protonix, follow up with Dr. Carbajal 2. chest pain, GI-related, normal coronary CTA, 3. Sinus bradycardia, normal TSH, stable and asymptomatic, follow up with PCP Patient Condition: Stable Procedures Date/Time of Note Date/Time of Note DATE: 06/15/17 TIME: 12:41 Proc Note GI Procedure Date 06/15/17 Pre-procedure Diagnosis * Atypical chest pain Post-procedure Diagnosis Assessment: * Normal esophagus * Rule out eosinophilic esophagitis. Biopsies obtained mid esophagus * Moderate erosive gastritis. Rule out H. pylori infection. Biopsies obtained Plan: * Protonix 40 mg daily * Review biopsies as soon as available * Advance diet as tolerated * Patient appears safe for outpatient follow-up Procedure Performed: Endoscopy Cleaning Validation Consultant none Anesthesia Type: MAC Anesthesiologist: NEREIDA MATOS MD EBL none Transfusion required none Biopsy 1: Body and antrum of the stomach Biopsy 2: Mid esophagus Grafts/Implants none Complication(s) none Pt Condition post procedure: stable Disposition: PACU Indications: other (Atypical chest pain) Procedure Description After informed consent, with the patient/relatives understanding the procedure, its indications, potential risks and complications, including but not limited to : allergic reaction, bleeding, perforation or infection, and after all pertinent questions were answered to the patients satisfaction, the patient/ relatives signed witnessed informed consent. Following this, premedication was administered slowly IV push under careful cardiovascular and respiratory monitoring with pulse oximetry, automatic blood pressure, and surveillance monitor. Once the sedative effect was achieved the patient was place in the left lateral decubitus, the panendoscope was introduced and advanced under visual control. Careful examination of the upper gastrointestinal tract, both on insertion as well as withdrawal of the instrument disclosing the following findings: ESOPHAGUS: the mucosa of the entire esophagus was carefully examined and showed the following findings: the mucosa appears within normal limits. There is no evidence of esophagitis, varices, neoplasm, or stricture. No Hiatal Hernia identified. Biopsies were obtained to mid esophagus to rule out eosinophilic esophagitis. STOMACH: Upon entrance to the stomach air was insufflated, the gastric chong distended normally. The mucosa of the fundus, body and antrum of the stomach was carefully examined both head-on and on retroflexion, and showed the following findings: There is moderate erythema and edema as well as erosions in the antrum of the stomach. Biopsies were obtained to rule out H. pylori infection. Otherwise the mucosa appears within normal limits with no abnormalities. There is no evidence of ulcers or neoplasm. PYLORUS: The pylorus was carefully examined and showed the following findings: the pylorus appears patent and within normal limits, with no evidence of gastric outlet obstruction. DUODENUM: The duodenal mucosa was carefully examined in the duodenal bulb as well as the second portion of the duodenum and showed the following findings: the mucosa appears unremarkable with no evidence of duodenitis, ulcer or neoplasm. MAC CARBAJAL MD Jun 15, 2017 12:44 <Electronically signed by MCA CARBAJAL MD> 06/15/17 1245 Hospital Course The patient is a 47-year-old with past medical history of prior appendectomy, prior C section, chronic low back pain and sciatica, who has been having epigastric pain that began earlier this morning. 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 She did well over the weekend until early this morning when she had nonbilious, nonbloody vomiting and nausea, as well as epigastric pain. She decided to come into the ER. She was given Tigan for nausea, as well as a GI cocktail, but her symptoms persisted, so again she came into the ER and when she came in she was found to be in sinus bradycardia, with a heart rate in the 38-44 range. Her white count was also elevated at 14.8. No diarrhea or constipation. No abdominal pain. But she is having positive chest pain and positive shortness of breath symptoms as well. She also found with mild hypertensive urgency as well. Systolic blood pressure is 161 to 170s as well. No prior history of any strokes or heart attacks. No prior history of any arrhythmias. She also stated that she got similar symptoms of epigastric pain, nausea, and vomiting one month ago, but those resolved and she did not seek any medical attention at that time. For chest pain, she has a negative coronary CT angiography. The chest pain is considered GI-related. No further cardiac work up needed at this time. For sinus bradycardia, TSH is normal. No treatment needed since it is asymptomatic. Follow up with PCP outpatient. Patient had EGD that revealed gastritis only. She will follow up with Dr. Carbajal for biopsy result. Home Meds Active Scripts Pantoprazole* (Protonix*) 40 Mg Tablet.dr, 40 MG PO DAILY for 30 Days, TAB Prov:KATE ESARS MD 06/15/17 Follow-up Plan PCP and Dr. Carbajal in one week Primary Care Provider Care Physician No Primary Pending Labs Laboratory Tests Test 06/15/17 09:00 White Blood Count 6.910^3/ul (4.8-10.8) Red Blood Count 4.2210^6/ul (4.20-5.40) Hemoglobin 10.7g/dl (12.0-16.0) Hematocrit 34.0% (37.0-47.0) Mean Corpuscular Volume 80.6fl (82.0-101.0) Mean Corpuscular Hemoglobin 25.4pg (29.0-33.0) Mean Corpuscular Hemoglobin Concent 31.5g/dl (32.0-37.0) Red Cell Distribution Width 14.0% (11.5-14.5) Platelet Count 14376^3/UL (140-415) Mean Platelet Volume 10.5fl (7.4-10.4) Neutrophils % 63.1% (39.0-77.0) Lymphocytes % 25.4% (15.0-51.0) Monocytes % 7.9% (0.0-11.0) Eosinophils % 2.8% (0.0-7.0) Basophils % 0.4% (0.0-2.0) Nucleated Red Blood Cells % 0.0/100WBC (0.0-0.0) Neutrophils # 4.310^3/ul (1.6-7.5) Lymphocytes # 1.710^3/ul (0.8-2.9) Monocytes # 0.510^3/ul (0.3-0.9) Eosinophils # 0.210^3/ul (0.0-0.5) Basophils # 0.010^3/ul (0.0-0.1) Nucleated Red Blood Cells # 0.010^3/ul (0.0-0.0) Sodium Level 140mmol/L (135-144) Potassium Level 4.0mmol/L (3.5-5.1) Chloride Level 108mmol/L (97-110) Carbon Dioxide Level 27mmol/L (21-31) Anion Gap 9 (8-16) Blood Urea Nitrogen 13mg/dl (7-20) Creatinine 0.66mg/dl (0.44-1.00) Glucose Level 93mg/dl (70-220) Calcium Level 9.2mg/dl (8.4-10.2) KATE SEARS MD Jun 15, 2017 13:57
--- NOTE | 2017-06-15 15:50 | PN ---
Date/Time of Note Date/Time of Note DATE: 06/15/17 TIME: 15:47 Assessment/Plan VTE Prophylaxis VTE Prophylaxis Intervention: SCD's Lines/Catheters IV Catheter Type (from Nrs): Peripheral IV Assessment/Plan Assessment/Plan Assessment: * Normal esophagus * Rule out eosinophilic esophagitis. Biopsies obtained mid esophagus * Moderate erosive gastritis. Rule out H. pylori infection. Biopsies obtained Plan: * Protonix 40 mg daily * Review biopsies as soon as available * Advance diet as tolerated * Patient appears safe for outpatient follow-up * case discussed with Dr Carbajal Subjective 24 Hr Interval Summary Free Text/Dictation * Course reviewed with RN * Patient seen and examined * No untoward events overnight Exam/Review of Systems Vital Signs Vitals Vital Signs Date Time Temp Pulse Resp B/P Pulse Ox O2 Delivery O2 Flow Rate FiO2 06/15/17 13:03 59 15 133/67 95 Room Air 06/15/17 12:44 98.0 06/14/17 05:16 2.0 Intake and Output 06/14/17 06/14/17 06/15/17 15:00 23:00 07:00 Intake Total 1400 ml 1140 ml Balance 1400 ml 1140 ml Exam Constitutional: alert Respiratory: clear to auscultation, normal air movement Gastrointestinal: non-tender, soft Extremities: normal pulses Neurological: nl speech, nl strength Skin: nl turgor Results Result Diagram: 06/15/17 0900 06/15/17 0900 Results 24 hrs Laboratory Tests Test 06/15/17 09:00 White Blood Count 6.9 Red Blood Count 4.22 Hemoglobin 10.7 L Hematocrit 34.0 L Mean Corpuscular Volume 80.6 L Mean Corpuscular Hemoglobin 25.4 L Mean Corpuscular Hemoglobin Concent 31.5 L Red Cell Distribution Width 14.0 Platelet Count 185 Mean Platelet Volume 10.5 H Neutrophils % 63.1 Lymphocytes % 25.4 Monocytes % 7.9 Eosinophils % 2.8 Basophils % 0.4 Nucleated Red Blood Cells % 0.0 Neutrophils # 4.3 Lymphocytes # 1.7 Monocytes # 0.5 Eosinophils # 0.2 Basophils # 0.0 Nucleated Red Blood Cells # 0.0 Sodium Level 140 Potassium Level 4.0 Chloride Level 108 Carbon Dioxide Level 27 Anion Gap 9 Blood Urea Nitrogen 13 Creatinine 0.66 Glucose Level 93 Calcium Level 9.2 Medications Medications Current Medications Ondansetron HCl (Zofran Inj) 4 mg Q6H PRN IV NAUSEA AND/OR VOMITING Last administered on 06/15/17 13:19; Admin Dose 4 MG; Start 06/12/17 at 16:00 Acetaminophen (Tylenol Tab) 650 mg Q6H PRN PO PAIN LEVEL 1-3 OR FEVER Last administered on 06/14/17 21:26; Admin Dose 650 MG; Start 06/12/17 at 16:00 Acetaminophen/ Hydrocodone Bitart (Madeline (5/325)) 1 tab Q6H PRN PO MODERATE PAIN LEVEL 4-6 Last administered on 06/12/17 17:30; Admin Dose 1 TAB; Start 08/18 at 16:00 Morphine Sulfate (morphine) 1 mg Q6H PRN IV SEVERE PAIN LEVEL 7-10; Start 06/12 at 16:00 Docusate Sodium (Colace) 100 mg Q12H PRN PO CONSTIPATION; Start 06/12/17 at 16: 00 Magnesium Hydroxide (Milk Of Mag) 30 ml DAILY PRN PO CONSTIPATION; Start at 16:00 Sodium Biphosphate/ Sodium Phosphate (Fleet Enema) 133 ml DAILY PRN NE CONSTIPATION; Start 06/12/17 at 16:00 Heparin Sodium (Porcine) 5000 unit 5,000 unit Q12 SC Last administered on 21:18; Admin Dose 5,000 UNIT; Start 06/12/17 at 21:00 Sodium Chloride (1/2 NS) 1,000 ml @ 75 mls/hr [id number] IV Last administered on 06/14/17 17:54; Admin Dose 75 MLS/HR; Start 06/12/17 at 15:38 Lorazepam 0.5 mg 0.5 mg Q6H PRN IV ANXIETY; Start 06/12/17 at 16:00 Levofloxacin/ Dextrose (Levaquin 750 Mg/ D5W 150 ml (Pmx)) 150 ml @ 100 mls/hr Q24H IVPB Last administered on 06/14/17 17:54; Admin Dose 100 MLS/HR; Start at 16:30 Hydralazine HCl (Apresoline) 10 mg Q6H PRN IV ELEVATED BLOOD PRESSURE; Start at 16:00 Clonidine (Catapres) 0.1 mg Q6H PRN PO ELEVATED BLOOD PRESSURE Last administered on 06/12/17 20:35; Admin Dose 0.1 MG; Start 06/12/17 at 16:00 Nitroglycerin (Nitroglycerin (Sl Tab) 0.4 Mg) 1 tab Q5M PRN SL ANGINA; Start at 16:00 Ketorolac Tromethamine (Toradol) 30 mg Q6H PRN IV PAIN Last administered on 13:19; Admin Dose 30 MG; Start 06/12/17 at 22:00; Stop 06/15/17 at 21:59 Pantoprazole (Protonix Tab) 40 mg DAILY@06 PO ; Start 06/16/17 at 06:00 ULISES DRAKE NP Jun 15, 2017 15:50
[2017-06-16] MEDS ORDERED: PANTOPRAZOLE (EC) 40 MG TAB PO SCH (06:00)
== END 2017-06-15 16:30 | disposition home or self-care (01) | DRG 392 ==
LOC: E/R 10:40 → MS4 15:18
PROVIDERS: ADMIT Internal Medicine; ATTEND Internal Medicine
PROC: 0DB28ZX Excision of Middle Esophagus, Via Natural or Artificial Opening Endoscopic, Diagnostic (ICD-10-PCS; 2017-06-15)
PROC: 0DB68ZX Excision of Stomach, Via Natural or Artificial Opening Endoscopic, Diagnostic (ICD-10-PCS; principal; 2017-06-15 12:00)
DX: K29.60 Other gastritis without bleeding (principal); I10 Essential (primary) hypertension; R00.1 Bradycardia, unspecified; G89.29 Other chronic pain; I16.0 Hypertensive urgency; M54.40 Lumbago with sciatica, unspecified side
CPT/HCPCS: 36415; 71010; 75574; 80048; 80053; 80061; 81003; 82550; 82553; 83036; 83690; 83735; 84100; 84439; 84443; 84484; 85025; 85610; 85730; 87086; 88305; 88312; 88313; 93005; 93306; 96365; 96366; 96375; 96376; 97162; C9113; J1200; J1644; J1885; J1956; J2270; J2405; J2765; J3010; J7030; Q9967